=== PATIENT | male | born 1940 | race Caucasian/White ===

== ENCOUNTER 2022-02-04 05:43 | Day surgery (SDC) | payer MEDICARE ==
[2022-02-03 12:37] LABS: BASOPHILS % (AUTO) 0.6 % (0-1); EOSINOPHILS # (AUTO) 0.2 X10'3 (0-0.9); EOSINOPHILS % (AUTO) 3.4 % (0-6); HEMATOCRIT 37.2 % (42.0-52.0); HEMOGLOBIN 12.6 g/dl (14.0-17.9); LYMPHOCYTES # (AUTO) 1.2 X10'3 (1.1-4.8); LYMPHOCYTES % (AUTO) 27.7 % (21-51); MEAN CORPUSCULAR HEMOGLOBIN 31.6 PG (27.0-31.0); MEAN CORPUSCULAR HGB CONC 33.9 g/dL (33.0-36.5); MEAN CORPUSCULAR VOLUME 93.2 FL (78-98); MEAN PLATELET VOLUME 7.9 FL (7.4-10.4); MONOCYTES # (AUTO) 0.6 X10'3 (0-0.9); MONOCYTES % (AUTO) 14.1 % (2-12); NEUTROPHILS # (AUTO) 2.4 X10'3 (1.8-7.7); NEUTROPHILS % (AUTO) 54.2 % (42-75); PLATELET COUNT 526 X10'3 (140-440); RED CELL DISTRIBUTION WIDTH 14.1 % (11.5-14.5); WHITE BLOOD COUNT 4.5 X10'3 (4.5-11.0)
[2022-02-03 12:46] LABS: ALBUMIN 3.5 G/DL (3.4-5.0); ANION GAP 8 (8-16); BLOOD UREA NITROGEN 20 MG/DL (7-18); BUN/CREATININE RATIO 15.2 (5.4-32.0); CALCIUM 8.7 MG/DL (8.5-10.1); CHLORIDE 106 MMOL/L (99-107); CREATININE 1.32 MG/DL (0.60-1.10); GLUCOSE 99 MG/DL (70-104); POTASSIUM 4.4 MMOL/L (3.5-5.1); SODIUM 140 MMOL/L (135-145); TOTAL CARBON DIOXIDE 25.6 MMOL/L (24-32); eGFR 52 ML/MIN
[2022-02-03 12:50] LABS: APTT 28 SECONDS (22-32)
[2022-02-04] VITALS (16 sets, daily range): BP systolic 108–154; BP diastolic 60–78
[~2022-02-04] VITALS: Ht 182.9 cm; Wt 97.3 kg
[~2022-02-04 05:43] MED LIST: CELE-193 PO; CHOL100010 PO; FLO0.4C PO; LISI-222 PO; MULT1TAB PO; NIA500ERT PO; OMEG1CAP54 PO
[2022-02-04] MEDS ORDERED: LORazepam 0.5 MG tablet PO PRN (06:20)
[2022-02-04] MEDS ORDERED: normal saline 1,000 ML IV SCH (06:20)
[2022-02-04] MEDS ORDERED: diphenhydrAMINE 25mg capsule PO PRN (06:20)
[2022-02-04] MEDS ORDERED: CARV25TA3 PO (06:26)
[2022-02-04] MEDS ORDERED: FINA5TAB11 PO (06:26)
[2022-02-04] MEDS ORDERED: GABA300C PO (06:26)
[2022-02-04] MEDS ORDERED: FLAX1CAP4 PO (06:30)
[2022-02-04] MEDS ORDERED: RED600TA PO (06:30)
[2022-02-04] MEDS ORDERED: ASPI-101 PO (06:30)
[2022-02-04] MEDS ORDERED: OMEG1CAP46 PO (06:30)
[2022-02-04] MEDS ORDERED: MULT-1085 PO (06:30)
[2022-02-04] MEDS ORDERED: verapamil 2.5 mg/ml inj IV ONE (07:34)
[2022-02-04] MEDS ORDERED: midazolam 1 mg/ML 2ml injection ONE (07:34)
[2022-02-04] MEDS ORDERED: nitroGLYCERIN-Tridil 50MG/D5W 250 ML IV ONE (07:34)
[2022-02-04] MEDS ORDERED: LIDOcaine 1% (10mg/ml) 2ml vial ONE (07:35)
[2022-02-04] MEDS ORDERED: heparin 1,000unit/ml 10ml vial 10 ML ONE (07:35)
[2022-02-04] MEDS ORDERED: iohexol 350MG/ML 100ml bottle IV ONE ×3 (07:35→09:00)
[2022-02-04] MEDS ORDERED: fentaNYL/PF 50MCG/1 ML 2ML syringe ONE (07:37)
[2022-02-04] MEDS ORDERED: sodium bicarbonate (8.4%) inj. 150 MEQ in dextrose 5%-water 850 ML IV SCH (08:20)
[2022-02-04] MEDS ORDERED: heparin 25,000 UNIT/250ml bag 250 ML IV ONE (08:40)
[2022-02-04] MEDS ORDERED: sodium bicarbonate (8.4%) inj. 150 ML in dextrose 5%-water 1,000 ML IV ONE (08:45)
[2022-02-04] MEDS ORDERED: sodium bicarbonate (8.4%) inj. 150 ML in dextrose 5%-water 850 ML IV ONE (08:45)
[2022-02-04] MEDS ORDERED: clopidogrel 300mg tablet ONE (09:19)
[2022-02-04] MEDS ORDERED: nitroGLYCERIN 0.4mg SUBLingual tab SL ONE (10:02)
[2022-02-04] MEDS: ACETYLCYSTEINE 200 MG/1 ML 4 ML ORAL SOLUTION PO SCH ×2 (11:50→15:28)
== END 2022-02-04 16:00 | disposition home or self-care (01) ==
LOC: SSTAY O 05:43
PROVIDERS: ATTEND Internal Medicine Cardiovascular Disease
DX: R94.39 Abnormal result of other cardiovascular function study (principal); I25.10 Atherosclerotic heart disease of native coronary artery without angina pectoris; J44.9 Chronic obstructive pulmonary disease, unspecified; I10 Essential (primary) hypertension; E78.5 Hyperlipidemia, unspecified; Z79.01 Long term (current) use of anticoagulants; Z86.19 Personal history of other infectious and parasitic diseases; Z95.0 Presence of cardiac pacemaker; Z98.42 Cataract extraction status, left eye; Z98.41 Cataract extraction status, right eye; Z82.3 Family history of stroke; Z85.72 Personal history of non-Hodgkin lymphomas
CPT/HCPCS: 36415; 76937; 80048; 85025; 85610; 85730; 93005; 93458; 99152; 99153; C1725; C1751; C1769; C1874; C1894; C9600; J1644; J2250; J3010; J3490; J7030; Q0163; Q9967; A6258; A6402

== ENCOUNTER 2022-03-02 10:21 | Day surgery (SDC) | payer MEDICARE ==
[2022-02-27 09:20] LABS: ALBUMIN 3.9 G/DL (3.4-5.0); BLOOD UREA NITROGEN 32 MG/DL (7-18); BUN/CREATININE RATIO 21.8 (5.4-32.0); CALCIUM 8.9 MG/DL (8.5-10.1); CHLORIDE 107 MMOL/L (99-107); CREATININE 1.47 MG/DL (0.60-1.10); POTASSIUM 4.5 MMOL/L (3.5-5.1); eGFR 46 ML/MIN
[2022-02-27 09:21] LABS: BASOPHILS # (AUTO) 0.1 X10'3 (0-0.2); BASOPHILS % (AUTO) 1.5 % (0-1); EOSINOPHILS # (AUTO) 0.2 X10'3 (0-0.9); EOSINOPHILS % (AUTO) 4.2 % (0-6); HEMATOCRIT 38.5 % (42.0-52.0); HEMOGLOBIN 12.7 g/dl (14.0-17.9); LYMPHOCYTES % (AUTO) 23.5 % (21-51); MEAN CORPUSCULAR HEMOGLOBIN 30.9 PG (27.0-31.0); MEAN CORPUSCULAR HGB CONC 32.9 g/dL (33.0-36.5); MEAN CORPUSCULAR VOLUME 94.2 FL (78-98); MEAN PLATELET VOLUME 7.7 FL (7.4-10.4); MONOCYTES # (AUTO) 0.5 X10'3 (0-0.9); MONOCYTES % (AUTO) 12.5 % (2-12); NEUTROPHILS # (AUTO) 2.4 X10'3 (1.8-7.7); NEUTROPHILS % (AUTO) 58.3 % (42-75); PLATELET COUNT 479 X10'3 (140-440); RED BLOOD COUNT 4.09 X10'6 (4.70-6.10); RED CELL DISTRIBUTION WIDTH 13.9 % (11.5-14.5); WHITE BLOOD COUNT 4.2 X10'3 (4.5-11.0)
[2022-02-27 09:24] LABS: APTT 29 SECONDS (22-32)
[2022-02-27 10:02] LABS: ANION GAP 6 (8-16); GLUCOSE 99 MG/DL (70-104); SODIUM 142 MMOL/L (135-145)
[~2022-03-02] VITALS: Ht 182.9 cm; Wt 98.2 kg
[2022-03-02] VITALS (11 sets, daily range): BP systolic 117–158; BP diastolic 60–82
[~2022-03-02 10:21] MED LIST changes: +ASPI-101 PO; +CARV25TA3 PO; +FINA5TAB11 PO; +FLAX1CAP4 PO; +GABA300C PO; -LISI-222 PO; +MULT-1085 PO; -MULT1TAB PO; -NIA500ERT PO; +OMEG1CAP46 PO; -OMEG1CAP54 PO; +RED600TA PO
[2022-03-02] MEDS ORDERED: ROSU40TA22 PO (10:48)
[2022-03-02] MEDS ORDERED: CLOP75TA34 PO (10:48)
[2022-03-02] MEDS ORDERED: LORazepam 0.5 MG tablet PO PRN (11:00)
[2022-03-02] MEDS ORDERED: normal saline 1,000 ML IV SCH (11:00)
[2022-03-02] MEDS ORDERED: diphenhydrAMINE 25mg capsule PO PRN (11:00)
[2022-03-02] MEDS ORDERED: acetylcysteine 200 MG/ml 4ml vial PO PRN (11:33)
[2022-03-02] MEDS ORDERED: sodium bicarbonate 1meq/ml syr 150 ML in dextrose 5%-water 1,000 ML IV ONE (11:35)
[2022-03-02] MEDS ORDERED: sodium bicarbonate 1meq/ml inj 150 ML in dextrose 5%-water 850 ML IV ONE (11:50)
[2022-03-02] MEDS ORDERED: sodium bicarbonate 1meq/ml syr 150 ML in dextrose 5%-water 850 ML IV ONE (11:50)
[2022-03-02] MEDS ORDERED: verapamil 2.5 mg/ml inj IV ONE (14:37)
[2022-03-02] MEDS ORDERED: heparin 1,000unit/ml 10ml vial 10 ML ONE (14:37)
[2022-03-02] MEDS ORDERED: midazolam 1 mg/ML 2ml injection ONE (14:37)
[2022-03-02] MEDS ORDERED: nitroGLYCERIN-Tridil 50MG/D5W 250 ML IV ONE (14:37)
[2022-03-02] MEDS ORDERED: iohexol 350MG/ML 100ml bottle IV ONE ×2 (14:37→16:03)
[2022-03-02] MEDS ORDERED: fentaNYL/PF 50MCG/1 ML 2ML syringe ONE (14:37)
[2022-03-02] MEDS ORDERED: LIDOcaine 1% (10mg/ml) 2ml vial ONE (14:37)
[2022-03-02] MEDS ORDERED: heparin 25,000 UNIT/250ml bag 250 ML IV ONE (15:14)
[2022-03-02] MEDS ORDERED: clopidogrel 300mg tablet ONE (16:24)
[2022-03-02] MEDS ORDERED: aspirin 81mg tab.chew PO ONE (17:15)
[2022-03-03] MEDS ORDERED: clopidogrel 75mg tablet PO SCH (08:00)
== END 2022-03-02 20:15 | disposition home or self-care (01) ==
LOC: SSTAY O 10:21
PROVIDERS: ATTEND Internal Medicine Cardiovascular Disease
DX: R94.39 Abnormal result of other cardiovascular function study (principal); I25.10 Atherosclerotic heart disease of native coronary artery without angina pectoris; I10 Essential (primary) hypertension; J44.9 Chronic obstructive pulmonary disease, unspecified; I49.5 Sick sinus syndrome; B19.20 Unspecified viral hepatitis C without hepatic coma; E78.49 Other hyperlipidemia; F12.90 Cannabis use, unspecified, uncomplicated; Z87.891 Personal history of nicotine dependence; Z85.72 Personal history of non-Hodgkin lymphomas; Z95.0 Presence of cardiac pacemaker; Z98.41 Cataract extraction status, right eye; Z98.42 Cataract extraction status, left eye; Z98.890 Other specified postprocedural states; Z82.3 Family history of stroke; Z80.9 Family history of malignant neoplasm, unspecified
CPT/HCPCS: 36415; 76937; 80048; 85025; 85347; 85610; 85730; 93005; 99152; 99153; A6258; C1725; C1751; C1769; C1874; C1894; C9600; C9601; J1644; J2250; J3010; J3490; J7030; J7070; Q0163; Q9967; A4620; A6402

== ENCOUNTER 2023-01-14 05:49 | Day surgery (SDC) | payer MEDICARE ==
[2023-01-13 12:29] LABS: EOSINOPHILS # (AUTO) 0.3 X10'3 (0-0.9)
[2023-01-13 12:30] LABS: BASOPHILS % (AUTO) 0.5 % (0-1); EOSINOPHILS % (AUTO) 6.6 % (0-6); HEMATOCRIT 38.7 % (42.0-52.0); HEMOGLOBIN 12.7 g/dl (14.0-17.9); LYMPHOCYTES % (AUTO) 19.1 % (21-51); MEAN CORPUSCULAR HGB CONC 32.9 g/dL (33.0-36.5); MEAN CORPUSCULAR VOLUME 94.2 FL (78-98); MEAN PLATELET VOLUME 8.1 FL (7.4-10.4); MONOCYTES # (AUTO) 0.7 X10'3 (0-0.9); MONOCYTES % (AUTO) 13.2 % (2-12); NEUTROPHILS # (AUTO) 3.1 X10'3 (1.8-7.7); NEUTROPHILS % (AUTO) 60.6 % (42-75); PLATELET COUNT 446 X10'3 (140-440); RED BLOOD COUNT 4.11 X10'6 (4.70-6.10); RED CELL DISTRIBUTION WIDTH 15.3 % (11.5-14.5); WHITE BLOOD COUNT 5.1 X10'3 (4.5-11.0)
[2023-01-13 12:35] LABS: ALBUMIN 3.5 G/DL (3.4-5.0); ANION GAP 8 (8-16); BLOOD UREA NITROGEN 25 MG/DL (7-18); BUN/CREATININE RATIO 17.6 (10.0-20.0); CALCIUM 8.8 MG/DL (8.5-10.1); CHLORIDE 108 MMOL/L (99-107); CREATININE 1.42 MG/DL (0.60-1.10); GLUCOSE 93 MG/DL (70-104); POTASSIUM 4.7 MMOL/L (3.5-5.1); SODIUM 140 MMOL/L (135-145); TOTAL CARBON DIOXIDE 23.8 MMOL/L (24-32); eGFR 47 ML/MIN
[2023-01-13 12:37] LABS: APTT 23 SECONDS (22-32); PROTHROMBIN TIME 10.8 SECONDS (9.0-12.0)
[~2023-01-14] VITALS: Ht 182.9 cm; Wt 93.3 kg
[2023-01-14] VITALS (10 sets, daily range): BP systolic 141–158; BP diastolic 71–78; PULSE 60–72; RESP 11–16; TEMP 97.8; O2SAT 96–99
[~2023-01-14 05:49] MED LIST changes: -ASPI-101 PO; +ASPI81TA52 PO; +CARV-50 PO; -CARV25TA3 PO; +CLOP75TA34 PO; -FLAX1CAP4 PO; +GABA-535 PO; -GABA300C PO; -RED600TA PO; +ROSU40TA22 PO; +TIZA2CAP PO
[2023-01-14] MEDS ORDERED: cefazolin 2gm/D5W 100mL 100 ML IV ONE (06:15)
[2023-01-14] MEDS ORDERED: midazolam 1 mg/ML 2ml injection ONE (07:33)
[2023-01-14] MEDS ORDERED: LIDOcaine 1% w/EPI 1:100,000 inj. MDV 50 ML VIAL ONE (07:33)
[2023-01-14] MEDS ORDERED: fentaNYL/PF 50MCG/1 ML 2ML syringe ONE (07:33)
[2023-01-14] MEDS ORDERED: ceFAZolin 1000mg inj ONE (07:33)
[2023-01-14] MEDS ORDERED: HYDROcodone/acetaminophen 10/325mg tab PO PRN (09:15)
[2023-01-14] MEDS ORDERED: HYDROcodone/acetaminophen 5mg/325mg tablet PO PRN (09:15)
[2023-01-14] MEDS ORDERED: vancomycin/NS 1 GM in NS 250 ML IV ONE (10:00)
== END 2023-01-14 12:15 | disposition home or self-care (01) ==
LOC: SSTAY O 05:49
PROVIDERS: ATTEND Internal Medicine Cardiovascular Disease
DX: Z45.010 Encounter for checking and testing of cardiac pacemaker pulse generator [battery] (principal); I10 Essential (primary) hypertension; E78.5 Hyperlipidemia, unspecified; I49.5 Sick sinus syndrome; I25.10 Atherosclerotic heart disease of native coronary artery without angina pectoris; J44.9 Chronic obstructive pulmonary disease, unspecified; I47.10 Supraventricular tachycardia, unspecified; Z86.19 Personal history of other infectious and parasitic diseases; Z87.891 Personal history of nicotine dependence; Z85.72 Personal history of non-Hodgkin lymphomas; Z98.41 Cataract extraction status, right eye; Z98.42 Cataract extraction status, left eye; Z98.890 Other specified postprocedural states; Z79.01 Long term (current) use of anticoagulants; Z79.899 Other long term (current) drug therapy; Z82.3 Family history of stroke; Z80.9 Family history of malignant neoplasm, unspecified
CPT/HCPCS: 33228; 36415; 80048; 85025; 85610; 85730; 93005; 99152; 99153; C1785; J0690; J2250; J3010; J3370; J3490; J7030; A6449